=== PATIENT | male | born 1960 ===

== ENCOUNTER 2018-10-21 02:20 | Emergency (ER) | payer BC ==
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
[2018-10-21 04:36] VITALS: BP 133/65; PULSE 65; RESP 18; TEMP 98.1
--- NOTE | 2018-10-21 08:14 | RAD ---
Date of service: 10/21/2018 PROCEDURE: Radiographs of the Lumbar Spine. HISTORY: lower back pain COMPARISON: No prior. FINDINGS: BONES: Normal alignment. No listhesis. No fracture. Mild Schmorl's node indentations-L4 and L5 levels noted. DISC SPACES: L5-S1 posterior minimal disc space narrowing. OTHER FINDINGS: Moderate stool retention. Bilateral L5-S1 mild facet hypertrophic arthrosis. IMPRESSION: No fracture or lytic lesions appreciated. Mild senescent changes as above.
[2018-10-22 04:48] VITALS: O2SAT 100
== END 2018-10-21 04:40 | disposition home or self-care (01) ==
LOC: H.ER 02:20
DX: S39.012A Strain of muscle, fascia and tendon of lower back, initial encounter (principal); Y04.0XXA Assault by unarmed brawl or fight, initial encounter
CPT/HCPCS: 72100; 96372; 99283; J1885